=== PATIENT | male | born 1995 | race Two or more races ===

== ENCOUNTER 2025-04-26 01:53 | Emergency (ER) | payer MEDICAID, OTHER ==
[~2025-04-26] VITALS: Ht 180.3 cm; Wt 84.1 kg
[2025-04-26 02:52] VITALS: TEMP 98.2
[2025-04-26 03:11] LABS: BASOPHILS % (AUTO) 0.4 % (0.0-2.0); HEMATOCRIT 44.3 % (41-53); HEMOGLOBIN 14.6 g/dL (13.5-17.5); LYMPHOCYTES # (AUTO) 1.8 K/uL (1.0-4.8); MEAN CORPUSCULAR HGB CONC 32.9 G/dL (31.0-37.0); MEAN CORPUSCULAR VOLUME 91 fL (80-100); MONOCYTES # (AUTO) 1.3 K/uL (0.1-1.0); MONOCYTES % (AUTO) 10.7 % (2.0-9.0); NEUTROPHILS # (AUTO) 8.8 K/uL (1.8-7.7); NEUTROPHILS % (AUTO) 72.9 % (40.0-70.0); PLATELET COUNT (AUTO) 289 K/uL (150-450); RED BLOOD CELL COUNT(AUTO) 4.86 MIL/uL (4.50-5.90); RED CELL DISTRIBUTION WIDTH 13.9 % (11.5-14.5); WHITE BLOOD COUNT (AUTO) 12.1 K/uL (4.5-11.0)
[2025-04-26 03:16] LABS: COVID AG,FIA SOURCE NASAL SWAB
[2025-04-26 03:18] LABS: ANION GAP 7 mmol/L (8-16); CALCIUM, TOTAL 8.8 mg/dL (8.8-10.5); CARBON DIOXIDE 28 mmol/L (22-29); CHLORIDE 103 mmol/L (98-107); CREATININE 0.87 mg/dL (0.60-1.30); GLOMERULAR FILTR. RATE CALC > 60 mL/min (>60); GLUCOSE,RANDOM 64 mg/dL (70-110); POTASSIUM 3.5 mmol/L (3.5-5.1); SODIUM SERUM 138 mmol/L (136-145); UREA NITROGEN, BLOOD 23 mg/dL (7-18)
[2025-04-26 03:40] LABS: INFLUENZA TYPE A NEGATIVE FOR TYPE A (NEGATIVE); INFLUENZA TYPE B NEGATIVE FOR TYPE B (NEGATIVE); SARS-COV2 (COVID) ANTIGEN,FIA Negative (Negative)
[2025-04-26] MEDS ORDERED: ALBU18HF12 IH (05:11)
[2025-04-26] MEDS ORDERED: AZIT250T9 PO (05:11)
[2025-04-26] MEDS ORDERED: PRED-554 PO (05:11)
[2025-04-26] MEDS: PredniSONE 20 MG TABLET PO ONE (05:32)
[2025-04-26 05:36] VITALS: BP 120/59; PULSE 88; RESP 15; O2SAT 98
== END 2025-04-26 05:38 | disposition home or self-care (01) ==
LOC: EMS 02:09
DX: J45.909 Unspecified asthma, uncomplicated (principal); J18.0 Bronchopneumonia, unspecified organism; Z20.822 Contact with and (suspected) exposure to COVID-19
CPT/HCPCS: 80048; 85025; 87804; 36415; 71045; 99284; 87426; J7512

== ENCOUNTER 2025-05-26 02:33 | Emergency (ER) | payer MEDICAID, OTHER ==
[~2025-05-26 02:33] MED LIST: ALBU18HF12 IH; PRED-554 PO
== END 2025-05-26 04:32 | disposition left against medical advice (07) ==
LOC: EMS 02:33
DX: F41.9 Anxiety disorder, unspecified (principal); Z53.21 Procedure and treatment not carried out due to patient leaving prior to being seen by health care provider